=== PATIENT | female | born 1990 | race Caucasian/White ===

== ENCOUNTER 2017-01-04 12:47 | Emergency (ER) | payer OTHER ==
[2017-01-04 12:53] VITALS: BP 110/67
--- NOTE | 2017-01-04 13:20 | ER Document Report ---
ED Medical Screen (RME) - General Stated Complaint: ABDOMINAL PAIN Mode of Arrival: Ambulatory Information source: Patient Notes: Patient presents to the emergency department with right lower quadrant abdominal pain for the past 2 days with history of ovarian cyst, kidney stones in ulcerative colitis. Patient does not have appendix.. She denies nausea vomiting. She reports some pain when she voids. Declines pain medication- motrin. I have greeted and performed a rapid initial assessment of this patient. A comprehensive ED assessment and evaluation of the patient, analysis of test results and completion of the medical decision making process will be conducted by additional ED providers. Physical Exam - Vital signs Vitals: Temp Pulse Resp BP Pulse Ox 98.3 F 93 14 110/67 98 01/04/17 12:52 01/04/17 12:52 01/04/17 12:52 01/04/17 12:52 01/04/17 12:52 Course - Vital Signs Vital signs: Temp Pulse Resp BP Pulse Ox 98.3 F 93 14 110/67 98 01/04/17 12:52 01/04/17 12:52 01/04/17 12:52 01/04/17 12:52 01/04/17 12:52
[2017-01-04 14:18] LABS: APPEARANCE,URINE CLEAR; BILIRUBIN,URINE NEGATIVE (NEGATIVE); GLUCOSE, URINE NEGATIVE (NEGATIVE); KETONES,URINE NEGATIVE (NEGATIVE); LEUKOCYTE ESTERASE,URINE NEGATIVE (NEGATIVE); NITRITE,URINE NEGATIVE (NEGATIVE); PROTEIN,URINE NEGATIVE (NEGATIVE); URINE SPECIFIC GRAVITY 1.015; UROBILINOGEN,URINE NEGATIVE mg/dL (<2.0)
[2017-01-04 14:19] LABS: HEMATOCRIT 35.6 % (36.0-47.0); HEMOGLOBIN 11.6 g/dL (12.0-15.5); HGB HCT DIFFERENCE -0.8; MEAN CORPUSCULAR HEMOGLOBIN 20.2 pg (27.0-33.4); MEAN CORPUSCULAR HGB CONC 32.6 g/dL (32.0-36.0); RED BLOOD COUNT 5.75 10^6/uL (3.72-5.28); RED CELL DISTRIBUTION WIDTH 17.7 % (11.5-14.0); WHITE BLOOD COUNT 6.5 10^3/uL (4.0-10.5)
[2017-01-04 14:45] LABS: ALANINE AMINOTRANSFERASE 21 U/L (9-52); ALBUMIN 4.3 g/dL (3.5-5.0); ALKALINE PHOSPHATASE 73 U/L (38-126); ANION GAP 12 (5-19); ASPARTATE AMINO TRANSFERASE 22 U/L (14-36); BILIRUBIN,DIRECT 0.2 mg/dL (0.0-0.4); BILIRUBIN,TOTAL 0.8 mg/dL (0.2-1.3); BLOOD UREA NITROGEN 9 mg/dL (7-20); CALCIUM 9.6 mg/dL (8.4-10.2); CARBON DIOXIDE 23 mmol/L (22-30); CHLORIDE 108 mmol/L (98-107); CREATININE RESULT 0.56 mg/dL (0.52-1.25); GLUCOSE 88 mg/dL (75-110); LIPASE 147.3 U/L (23-300); POTASSIUM 4.6 mmol/L (3.6-5.0); SODIUM 143.1 mmol/L (137-145); TOTAL PROTEIN 7.9 g/dL (6.3-8.2)
[2017-01-04 14:46] LABS: MEAN CORPUSCULAR VOLUME 62 fl (80-97)
[2017-01-04 14:52] LABS: BASOPHILS % (MANUAL) 3 % (0-2); EOSINOPHILS % (MANUAL) 4 % (0-6); LYMPHOCYTES % (MANUAL) 30 % (13-45); NUCLEATED RED BLOOD CELLS 2 /100 WBC (0); TARGET CELLS 2+; TOTAL CELLS COUNTED 100
[2017-01-04 14:53] LABS: ANISOCYTOSIS 2+; HOWELL-JOLLY BODIES PRESENT; HYPOCHROMASIA 2+; MICROCYTOSIS 3+; OVALOCYTES SLIGHT; PLATELET CLUMPS PRESENT; POIKILOCYTOSIS 1+; POLYCHROMASIA SLIGHT; SCHISTOCYTES 1+; TOXIC GRANULATION SLIGHT
== END 2017-01-04 19:26 | disposition left against medical advice (07) ==
LOC: ER 12:47
DX: R10.31 Right lower quadrant pain (principal); R30.0 Dysuria
CPT/HCPCS: 36415; 80053; 81001; 83690; 84703; 85025; 99281